=== PATIENT | female | born 1985 | race Caucasian/White ===

== ENCOUNTER → 2018-07-12 15:13 | Outpatient (CLI) | payer MEDICAID, SELFPAY ==
[2018-07-12 17:41] LABS: Chlamydia Trachomatis by PCR Negative (Negative); Neisserai gonorrhoeae by PCR Negative (Negative); Probe Check PASS; Sample Adequacy Control PASS; Specimen Processing Control PASS
[2018-07-17 10:44] LABS: HPV Reflexed? NOT INDICATED
== END ==
PROVIDERS: Visit Provider Obstetrics & Gynecology
DX: Z12.4 Encounter for screening for malignant neoplasm of cervix (principal); Z11.3 Encounter for screening for infections with a predominantly sexual mode of transmission
CPT/HCPCS: 87491; 87591; 88175; G0145

== ENCOUNTER → 2018-07-25 11:44 | Outpatient (CLI) | payer MEDICAID, SELFPAY ==
[2013-08-22 07:40] VITALS: BMI 30.6
[2018-07-25 14:40] LABS: Color, Urine Yellow (Yellow); Glucose, Dipstick Normal (Normal); Ketone-Dipstick Negative (Negative); Leukocyte Esterase-Dipstick 100 /ul (Negative); Nitrite-Dipstick Negative (Negative); Occult Blood-Urine Negative /ul (Negative); Protein-Dipstick Negative (Negative); Urine Bilirubin Dipstick Negative (Negative); Urine Clarity Sl. Cloudy (Clear); Urine Urobilinogen Normal (Normal)
[2018-07-25 14:43] LABS: COTININE Drug Screen Positive (<200 ng/mL)
[2018-07-25 14:56] LABS: Absolute Lymphocyte Count 2.18 X10^3/ul (0.83-4.51); Basophil# 0.01 X10^3/uL; Basophil% 0.1 % (0-1); Eosinophil# 0.11 X10^3/uL; Eosinophils% 1.1 % (0-5); Hemoglobin 12.3 g/dl (12.0-15.0); Lymphocyte # 2.18 X10^3/ul (4.0); Lymphocyte % 22.2 % (19-41); Mean Corp Hgb Conc 33.2 g/gl (32-36); Mean Corpuscular Hgb 29.6 pg (27.0-32.0); Mean Corpuscular Volume 89.2 fL (81-99); Mean Platelet Vol. 11.6 fl (6.2-12.0); Monocyte# 0.47 X10^3/uL; Monocyte% 4.8 % (0-10); Neutrophil # 7.01 X10^3/uL (2.7-7.7); Neutrophil % 71.6 % (47-70); Platelet Count 384 K/mm3 (150-450); RBC Distribution Width CV 12.9 % (11.6-14.6); RBC Distribution Width SD 41.9 fl (35.1-43.9); Red Blood Count 4.15 M/mm3 (4.2-5.4); White Blood Count 9.8 K/mm3 (4.4-11.0)
[2018-07-25 14:59] LABS: Amphetamine Urine VISTA NEGATIVE (<1000 ng/mL); Barbiturate Urine VISTA NEGATIVE (< 200 ng/mL); Benzodiazepine Urine VISTA NEGATIVE (< 200 ng/mL); Cocaine Urine VISTA NEGATIVE (< 300 ng/mL); Ecstacy Urine VISTA NEGATIVE (< 500 ng/mL); Methadone Urine VISTA NEGATIVE (< 300 ng/mL); PCP Urine VISTA NEGATIVE (< 25 ng/mL); POSITIVE COUNT NO; POSITIVE DIFFERENTIAL NO; POSITIVE MORPHOLOGY NO; THC Urine VISTA POSITIVE (< 50 ng/mL); Vista UDS pH Range 8
[2018-07-25 15:16] LABS: Thyroid Stim Hormone (TSH) 1.03 uIU/mL (0.358-3.74)
[2018-07-25 15:53] LABS: HIV - WCH Non-Reactive (Nonreactive); Rubella IgG 136.3 IU/mL
[2018-07-25 20:22] LABS: Prenatal RPR NONREACTIVE (NONREACTIVE)
[2018-07-26 08:29] LABS: HEPATITIS B SURFACE AG Negative (Negative); Hep C Antibodies <0.1 s/co ratio (0.0-0.9)
== END ==
PROVIDERS: Visit Provider Obstetrics & Gynecology
DX: Z34.81 Encounter for supervision of other normal pregnancy, first trimester (principal)
CPT/HCPCS: 36415; 80307; 81002; 84443; 85025; 86703; 86762; 86803; 87340

== ENCOUNTER → 2018-09-19 | Outpatient (CLI) | payer MEDICAID, SELFPAY ==
[2013-08-22 07:40] VITALS: BMI 30.6
[2018-09-21 03:06] LABS: AFP MoM Value 0.77 (.); AFP Value-EIA 23.6 ng/mL (.); Comment Report (.); DIA MoM Value 1.59 (.); DSR (By Age) 420 (.); DSR (Second Trimester) 3841 (.); Gestat. Age Based On As provided (.); Gestational Age 16.6 WEEKS (.); Insulin Dep Diabetes No (.); Maternal Age At EDD 33.3 yr (.); hCG MoM 0.39 (.); hCG Value 12627 mIU/mL (.)
== END | disposition home or self-care (01) ==
LOC: WOBLAB 10:04
PROVIDERS: Visit Provider Obstetrics & Gynecology
DX: Z34.82 Encounter for supervision of other normal pregnancy, second trimester (principal)
CPT/HCPCS: 36415; 82105; 82677; 84702; 86336

== ENCOUNTER → 2018-12-04 | Outpatient (CLI) | payer MEDICAID, SELFPAY ==
[2018-12-04 10:38] LABS: Hematocrit 33.7 % (37-47); Hemoglobin 11.3 g/dL (12.0-15.0); Mean Corp Hgb Conc 33.5 g/dL (32-36); Mean Corpuscular Hgb 30.9 pg (27.0-32.0); Mean Corpuscular Volume 92.1 fL (81-99); Mean Platelet Vol. 10.8 fl (6.2-12.0); Platelet Count 302 K/mm3 (150-450); RBC Distribution Width CV 12.5 % (11.6-14.6); RBC Distribution Width SD 41.2 fl (35.1-43.9); Red Blood Count 3.66 M/mm3 (4.2-5.4); White Blood Count 10.1 K/mm3 (4.4-11.0)
[2018-12-04 10:48] LABS: Glucose Challenge Gest 1H 50g 110 mg/dL (70-140)
== END | disposition home or self-care (01) ==
LOC: WOBLAB 10:08
PROVIDERS: Visit Provider Obstetrics & Gynecology
DX: Z34.83 Encounter for supervision of other normal pregnancy, third trimester (principal)
CPT/HCPCS: 36415; 82950; 85027

== ENCOUNTER → 2019-02-14 15:03 | Outpatient (CLI) | payer MEDICAID, SELFPAY ==
[2013-08-22 07:40] VITALS: BMI 30.6
== END ==
PROVIDERS: Visit Provider Obstetrics & Gynecology
DX: Z36.85 Encounter for antenatal screening for Streptococcus B (principal)
CPT/HCPCS: 87081

== ENCOUNTER 2019-03-06 06:40 | Inpatient (IN) | payer MEDICAID, SELFPAY ==
[2019-03-06 07:35] VITALS: BMI 35.4
[2019-03-06] MEDS: Lactated Ringers 1,000 ML 50 ML IV (07:40)
[2019-03-06 08:00] LABS: Absolute Lymphocyte Count 2.13 X10^3/uL (0.83-4.51); Absolute Neutrophil Count 9.6 X10^3/uL (2.0-7.7); Basophil# 0.03 X10^3/uL; Basophil% 0.2 % (0-1); Eosinophil# 0.12 X10^3/uL; Hematocrit 34.7 % (37-47); Hemoglobin 11.3 g/dL (12.0-15.0); Lymphocyte # 2.13 X10^3/ul (4.0); Mean Corp Hgb Conc 32.6 g/dL (32-36); Mean Corpuscular Hgb 29.5 pg (27.0-32.0); Mean Corpuscular Volume 90.6 fL (81-99); Mean Platelet Vol. 11.8 fl (6.2-12.0); Monocyte# 0.65 X10^3/uL; Monocyte% 5.2 % (0-10); NRBC Flagged by Analyzer 0 % (0-5); Neutrophil # 9.57 X10^3/uL (2.7-7.7); Neutrophil % 76.2 % (47-70); Platelet Count 248 K/mm3 (150-450); RBC Distribution Width CV 13.1 % (11.6-14.6); RBC Distribution Width SD 43.3 fl (35.1-43.9); Red Blood Count 3.83 M/mm3 (4.2-5.4); White Blood Count 12.6 K/mm3 (4.4-11.0)
[2019-03-06] MEDS: Oxytocin 30 units/NS 500 ml 30 UNITS/500 ML IV.SOLN IV (08:38)
[2019-03-06] MEDS: Lactated Ringers 500 ML 999 ML IV (10:59)
[2019-03-06] MEDS: fentaNYL-bupivacaine (epidural) 100 ML BAG EPIDURAL (12:11)
[2019-03-06] MEDS: Lactated Ringers 1,000 ML 200 ML IV (13:57)
[2019-03-06] MEDS: Oxytocin 30 units/NS 500 ml 30 UNITS/500 ML IV.SOLN 334 UNITS IV (14:38)
--- NOTE | 2019-03-06 14:48 | PCM.HP.BLA ---
History and Physical Date of Admission: 03/06/19 [facility] [place]ORY AND PHYSICAL (03/06/2019) Name: JOLYNN SOLER History of This : This is a 33-year-old patient who presents for induction at 40 weeks and 6 days gestation. care uneventful except for a previous shoulder dystocia with her first . She is also a smoker and has been advised to quit. OB Physician: MAYA 's Physician: DR. SUSAN GILBERT ...................................................................... : 1985 Age: 33 Address: [address] [place] [address] Phone: (h) [phone] [facility] [place] [id number] Emergency Contact: EMA SOLER [phone] ...................................................................... Final LAM: 02/28/19 By Ultrasound: 8 weeks 6 days PARITY: (G-Total Pregnancies P-Fullterm,Premature,Induced AB,Spont AB, Ectopics, Multiple,Living) LAM CONFIRMATION: By LMP: 05/24/18 Final LAM: 02/28/19 OB PROBLEM LIST: Epidural planned. Will formula feed baby. Hx of needing induction for post-dates with previous deliveries. Shoulder Dystocia first deliv. (9 lbs) Smoker--advised to quit Wants 39 week induction Wants MSAFP drawn, declines CF testing ALLERGIES: NKDA MEDICATIONS: Diflucan 150 mg tablet one tab PO Vitamin tablet SOCIAL HISTORY: Smoking - Smokes--advised to quit Alcohol Use - denies drinking Diet - balanced Diet Lifestyle - moderate stress lifestyle Exercise - active Employer - unemployed Job Description - Illicit Drug Use - denies use of street drugs Sexual Activity - Residence - owns a home Place of - [place], [place] Spouse-Sig Other Name - Ema Soler Spouse-Sig Other Occupation - Self-employed - giovanni Spouse-Sig Other Phone No - [phone] Children Name(s) - Elias Velarde. Estelita PRIOR DELIVERY HISTORY DEL DATE GEST LAB WT LB WT OZ TYPE ANES LABOR TX 01 Aug 17 41 24 9 0 Vag Epidural No Apr 19 41 12 7 0 Vag Epidural No Aug 25 40 8 7 7 Vag Epidural No ANTEPARTUM FLOW CHART VISIT RTC FU F F AZ U U DATE WK MD WKS HT PN HR M SS BP ED WT AZ GL D EF ST __ ____ ___ __ __ ___ __ __ __ ___ __ __ __ ___ __ 21 Feb 40 JMW 6 38 V + + 130/80 sl 208 tr - 2 50 -2 16 Feb 39 JMW 1 39 V + + 130/88 sl 204 - - 1 50 -2 11 Feb 39 ELB 1 39 V + + 114/72 sl 206 tr - ft 25 hi 04 Feb 38 ELB 1 37 V U+ + 122/80 0 204 tr - 1 -3 Sep 36 JMW 1 37 + + 122/74 sl 203 tr - 18 Sep 35 JMW 1 36 B + + 120/74 tr 202 - - 12 Jan 34 JMW 1 35 + + 110/80 sl 200 - - Dec JMW 2 32 + 120/78 sl 203 - - Jan 10 SHM 2 30 + + 100/70 0 198 - - Dec 07 JMW 3 27 + + 122/70 0 198 - - Nov 03 DS 4 24 ? + + 126/74 0 196 - - September 29 ELB 4 - B U+ + 110/70 0 193 - - September 26 DS 3 16 ? + ? 126/74 0 187 Aug 23 DS 4 ? + O 124/74 0 181 - - Jul 19 DS 4 ? U+ O 138/68 0 178 - - ANTEPARTUM NOTE(S): Mar 03 2019: feeling well. Cervix check. Feb 26 2019: feeling well. Cervix check. Feb 21 2019: uncomfortable Feb 14 2019: GBS today VTX and cancelled C/S Feb 06 2019: Good FM,(L) ankle swelling Jan 29 2019: Wants with tubal Jan 23 2019: feeling well. cramping on left side. Jan 09 2019: feeling well. Dec 25 2018: feeling well. Dec 04 2018: CBC,OGCT Today,URI with Amoxicillin Therapy x 7 days Nov 05 2018: see note Oct 08 2018: feeling well. Sep 19 2018: see note Aug 22 2018: see note Jul 25 2018: see note COMPREHENSIVE ANTEPARTUM NOTE(S): Feb 26 2019: (m,f,m,m*) 39.5 weeks wishes to be induced. SVE /-2 soft anterior. Remains vertex with FHR 160. Denies ROM/bleeding. +FM. Denies any questions or concerns. Will return Sunday for SVE and induction per Dr. Jacob Law CH Feb 18 2019: GBS negative. EB Feb 14 2019: H taken to OB. tkg Feb 06 2019: Signed Tubal Federal Consent Form today and reports feeling well, with slight swelling in (L) ankle area. ROSY Feb 06 2019: Feeling well; reports active FM; denies UCs, VB, LOF; discussed warning signs, s/s PTL; RTO 1 weeks for PNV - KVW Jan 29 2019: Jolynn is here at 35.5 weeks for visit following growth US. She is feeling well. Baby is active. No questions. Clau MCKEON Jan 09 2019: Feeling well; reports active FM; UCs, VB, LOF; discussed warning signs, s/s PTL; RTO 2 week(s)for PNV Dec 25 2018: Good movement, minor muscular discomforts, overall feeling well. Discussed resutls of glucola and bloodwork, comfort measures, s/s PTL, pt verbalized understanding Nov 05 2018: Good FM. Glucola bottle and instructions given to be done next visit. Nov 05 2018: No complsints. Feeling movement. GCT and CBC next visit. Sep 19 2018: Doing well. No complaints. MSAFP screening done today. Test explained. Anatomical US next visit. Aug 22 2018: labs reviewed from last visit and were normal. She was positive on screening for nicotine and THC. Will consider repeating these at a future visit. No bleeding or cramping. Aug 22 2018: Finished ABX yesterday for a tooth problem. Sx yeast and given Diflucan 08/20. Still having Sx. kbm Jul 25 2018: Doing well. No complaints. No bleeding. US c/w dating. Normal heart beat noted today.NOB nurse intake and labs done today. Jul 25 2018: Jolynn is here for her NOB visit at 8 w 6 d, she is a with an LAM of 02/28/2019. She reports that she feels well, and that any nausea she had been experiencing has resolved. She and her have a 4 year old daughter together; Jolynn has a 11 and 13 year old from a previous relationship, and her , Ema, has three children form a previous relationship, ages 8, 9, and 15. Past history updated. Delivery at [facility] is planned with an epidural, and she plans to formula feed baby. Office practice patterns reviewed, including what labs being collected today entail. Emergencies/danger signs to report, round ligament pain, reporting s/s of a UTI, and common OTC medications approved/not approved for use during discussed. Jolynn states that she is still smoking and wants to quit, she is down to a few cigarettes a day; encouraged to quit as planned. She denies use of drugs or ETOH. Jolynn takes an OTC gummy vitamin and tolerates this well. Genetic Screening form completed, no significant history noted. She wants to have MSAFP drawn, and she declines CF testing; consent signed as such. Jolynn drinks at least one gallon of water every 24 hrs, and limits caffeine use to one cup a day. She tries to eat a generally well balanced diet, and will make sure protein is included in her diet throughout the day. She walks several times a week, and plans to continue to do so. Kegel exercises reviewed. Lifting restrictions discussed. Reviewed caloric needs, recommended weight agin, limiting empty calories, and continuing to limit caffeine to one cup a day. Printed guide for food safety during provided with review. Jolynn voices that she understands all information provided during NOB visit, and she has no questions following same. To [facility] draw station for labs. AW New Jul 13 2018: GC and chlamydia NEG. EB Jul 12 2019: Jolynn is being seen for missed menses. UPT is positive in office. LMP 1-11-19. Pt is about 7 weeks. LAM 19. Medications and allergies are up to date. information reviewed. Pap and cultures due today. AM REVIEW OF SYSTEMS: GENERAL - Denies fever, or chills SKIN - Denies rash, new skin lesions, or change in moles EYES - Denies blurred vision, or change in visual acuity EARS - Denies ear pain, or difficulty hearing NOSE - Denies nasal congestion, discharge, or bleeding MOUTH - Denies sore throat, or difficulty swallowing NECK - Denies pain or swelling RESPIRATORY - Denies shortness of breath, cough, wheezing CARDIOVASCULAR - Denies palpitations, chest pain, orthopnea, PND, peripheral edema, syncope or claudication GASTROINTESTINAL - Denies nausea, vomiting, diarrhea, constipation, Denies abdominal pain, melena and or bright red blood GENITOURINARY - Denies dysuria, frequency of urination, urgency, or hesitancy MUSCULOSKELETAL - Denies joint or muscle pain, or back pain NEUROLOGICAL - Denies localized numbness, weakness, or tingling PSYCHIATRIC - Denies depression, anxiety, substance abuse or suicide attempts ENDOCRINE - Denies heat or cold intolerance, weight loss or gain, increasing thirst HEMATO-IMMUNOLOGIC - Denies easy bruising, bleeding, oral ulcerations or recurrent infections GENETICS SCREENING: Age 35+ years: No Thalassemia: No Neural Tube Defect: No Down Syndrome: No SARANYA-SACHS: No Sickle Cell Disease: No Hemophilia: No Musc. Dystrophy: No Cystic Fibrosis: No-declines screening Devon Chorea: No Mental Retardation: No Fragile X: No Other genetic: No Other defects: No SABs/still births: No Drugs since LMP: No INFECTION HISTORY: High risk AIDS: No High risk Hepatitis: No Exposed to TB: No Exposed to Herpes: No Rash/viral illness since LMP: No History of STD: No MENSTRUAL HISTORY: *Menses Amount/Duration: 4 to 5 daysMenses Regularity: IrregularFrequency: variable* PAST SUMMARY: PARITY: 1. Total Pregnancies............ 4 2. Full Term Pregnancies........ 3 3. Premature.................... 0 4. Abortions - Induced.......... 0 5. Abortions - Spontaneous...... 0 6. Ectopics..................... 0 7. Multiple Births.............. 0 8. Living Children.............. 3 PAST #1: Date of :.................. 08/12/05 Gestation Weeks:................ 41 Length of labor(hours):......... 24 Sex:............................ M Weight-lbs:............... 9 Weight-oz:................ 0 Type of Delivery:............... Vag Type of Anesthesia:............. Epidural Place of Delivery:.............. [place] Treatment of Labor?:.... No Comment: MANUAL OF PLACENTA, INDUC PAST #2: Date of :.................. 04/16/07 Gestation Weeks:................ 41 Length of labor(hours):......... 12 Sex:............................ F Weight-lbs:............... 7 Weight-oz:................ 0 Type of Delivery:............... Vag Type of Anesthesia:............. Epidural Place of Delivery:.............. wadw Treatment of Labor?:.... No Comment: PAST #3: Date of :.................. 08/22/13 Gestation Weeks:................ 40 Length of labor(hours):......... 8 Sex:............................ F Weight-lbs:............... 7 Weight-oz:................ 7 Type of Delivery:............... Vag Type of Anesthesia:............. Epidural Place of Delivery:.............. [place] Treatment of Labor?:.... No Comment: PHYSICAL EXAMINATION General Appearence: 33 yo female in no acute distress Vital Signs: AF, VSS Heart: RRR without rubs or gallops Lungs: CTA x 2 Breasts: deferred Abdomen: gravid Pelvis: Cervix: 3 cm/60 AROM scant Presentation: cephalic Station: -2 Fetus: Size: AGA Movement: present Heart: present Labs for : JOLYNN SOLER since 06/03/2018 ORDER DATEIN DESCRIPTION VALUE UNITS RANGE A+ COMMENT TYPE AND SCREEN 03/06/19 Reason for Type AND Screen/Red Cells: Labor [facility]~[address] [place], [address]~ BLOOD TYPE GEL A POSITIVE N ANTIBODY SCREEN NEGATIVE N CBC W/DIFF, AUTOMATED 03/06/19 NOTE Original Ordering Provider: Sarai Julian WBC 12.6 K/mm3 4.4-11.0 H RBC 3.83 M/mm3 4.2-5.4 L HGB 11.3 g/dL 12.0-15.0 L HCT 34.7 % 37-47 L MCV 90.6 fL 81-99 MCH 29.5 pg 27.0-32.0 MCHC 32.6 g/dL 32-36 RDW CV 13.1 % 11.6-14.6 RDW SD 43.3 fl 35.1-43.9 PLT 248 K/mm3 150-450 MPV 11.8 fl 6.2-12.0 NEUT% 76.2 % 47-70 H LY% 17.0 % 19-41 L MONO% 5.2 % 0-10 EO% 1.0 % 0-5 BASO% 0.2 % 0-1 IM GRAN % 0.400 % 0.0-0.9 IG% - Immature Granulocytes (promyelocytes, myelocytes and metamyelocytes) > 1% indicates that a LEFT SHIFT is Present. ABSOLUTE NEUT 9.6 X10 3/uL 2.0-7.7 H ABSOLUTE LYMPH 2.13 X10 3/uL 0.83-4.51 NRBC, FLAGGED 0 % 0-5 CULTURE, GROUP B STREPTOCOCCUS 02/14/19 NOTE Original Ordering Provider: Sarai Julian Comments: VAGINAL/RECTAL GONZALO Culture Group B Beta Streptococcus is not isolated. Reviewed by SARAI GLUCOSE CHALLENGE GEST 1H 50G 12/04/18 NOTE Original Ordering Provider: Rodríguez Freeman GLU GEST 50G 1H 110 mg/dL 70-140 Reviewed by RODRÍGUEZ CBC-COMPLETE BLOOD CNT NO DIFF 12/04/18 NOTE Original Ordering Provider: Rodríguez Freeman WBC 10.1 K/mm3 4.4-11.0 RBC 3.66 M/mm3 4.2-5.4 L HGB 11.3 g/dL 12.0-15.0 L HCT 33.7 % 37-47 L MCV 92.1 fL 81-99 MCH 30.9 pg 27.0-32.0 MCHC 33.5 g/dL 32-36 RDW CV 12.5 % 11.6-14.6 RDW SD 41.2 fl 35.1-43.9 PLT 302 K/mm3 150-450 MPV 10.8 fl 6.2-12.0 Reviewed by RODRÍGUEZ ROSAS TETRA QUAD SCREEN 09/19/18 NOTE Original Ordering Provider: Carla Gar TEST RESULTS: *Screen Negative* . GESTATIONAL AGE 16.6 WEEKS . GEST AGE [age] As provided . [age]STIN [age]AM [age] . RACE . WEIGHT 187 lbs . INS DEP DIABETE No . MULT GESTATION No . AFP VALUE-EIA 23.6 ng/mL . AFP MOM VALUE 0.77 . HCG VALUE 11533 mIU/mL . HCG MOM 0.39 . UE3 VALUE 0.77 ng/mL . UE3 MOM 0.87 . SNEHA VALUE-EIA 239.89 pg/mL . SNEHA MOM VALUE 1.59 . OSBR RISK 24086 . DSR 2ND TRIMEST 3841 . DSR (BY AGE) 420 . T18 RISK Not increased . T18 (BY AGE) 1:1637 . INTERPRETATION . Interpretation: Screen Negative This result is screen negative for OSB, Down Syndrome and Trisomy 18. The AFP MoM and patient specific risks calculated are based on the gestational age and the clinical information provided. This test can identify up to 80% of open neural tube defects. Closed neural tube defects and some open defects may not be detected by this test. The combination of maternal age, AFP, hCG, uE3, and SNEHA identifies 75-80% of Down Syndrome. The combination of maternal age, AFP, hCG and uE3 identifies 60% of Trisomy 18 pregnancies. The [employer] recommends amniocentesis be offered to women age 35 and older. Recalculations are not recommended when gestational dating by LMP and ultrasound are within 10 days. Reviewed by CARLA HEPATITIS C ANTIBODIES 07/25/18 NOTE Original Ordering Provider: Carla Gar HEP C AB <0.1 s/co ratio 0.0-0.9 Negative: < 0.8 Indeterminate: 0.8 - 0.9 Positive: > 0.9 The CDC recommends that a positive HCV antibody result be followed up with a HCV Nucleic Acid Amplification test (264260). Reviewed by CARLA HEPATITIS B SURFACE AG 07/25/18 NOTE Original Ordering Provider: Carla Gar HB SURF AG Negative Negative Performed at: [address] [id number] Steam Fitter Helper: Luis Fernando Bond PhD, Phone: [phone] Reviewed by CARLA RPR 07/25/18 NOTE Original Ordering Provider: Carla Gar RPR NONREACTIVE NONREACTIVE Reviewed by CARLA HIV - [facility] 07/25/18 NOTE Original Ordering Provider: Carla Gar HIV - [facility] Non-Reactive Nonreactive Reviewed by CARLA RUBELLA IGG 07/25/18 NOTE Original Ordering Provider: Carla Gar RUBELLA IGG 136.3 IU/mL Antibody results Interpretation of Immune Status < 5 IU/ml Presumed Non-immune 5 - < 10 IU/ml Equivocal > or = 10 IU/ml Presumed Immune Reviewed by CARLA T AND S-NO CHARGE W/PNP 07/25/18 Reason for Type AND Screen/Red Cells: Surgery? N [facility]~[address] [place], [address]~ BLOOD TYPE GEL A POSITIVE N AB SCREEN GEL NEGATIVE N Reviewed by CARLA THYROID STIM HORMONE (TSH) 07/25/18 NOTE Original Ordering Provider: Carla Gar TSH 1.03 uIU/mL 0.358-3.74 Reviewed by CARLA CBC W/DIFF, AUTOMATED 07/25/18 NOTE Original Ordering Provider: Carla Gar WBC 9.8 K/mm3 4.4-11.0 RBC 4.15 M/mm3 4.2-5.4 L HGB 12.3 g/dl 12.0-15.0 HCT 37.0 % 37-47 MCV 89.2 fL 81-99 MCH 29.6 pg 27.0-32.0 MCHC 33.2 g/gl 32-36 RDW CV 12.9 % 11.6-14.6 RDW SD 41.9 fl 35.1-43.9 PLT 384 K/mm3 150-450 MPV 11.6 fl 6.2-12.0 NEUT% 71.6 % 47-70 H LY% 22.2 % 19-41 MONO% 4.8 % 0-10 EO% 1.1 % 0-5 BASO% 0.1 % 0-1 IM GRAN % 0.200 % 0.0-0.9 IG% - Immature Granulocytes (promyelocytes, myelocytes and metamyelocytes) > 1% indicates that a LEFT SHIFT is Present. ABSOLUTE NEUT 7.0 X10 3/uL 2.0-7.7 ABSOLUTE LYMPH 2.18 X10 3/ul 0.83-4.51 Reviewed by CARLA NICOTINE URINE DRUG SCREEN 07/25/18 NOTE Original Ordering Provider: Carla Gar TO BE CONFIRMED CONFIRMATORY TESTING FOR ALL POSITIVE URINE DRUG SCREEN RESULTS WILL ONLY BE SENT OUT UPON PHYSICIAN ORDER. The results of Urine Drug Screen methods provide only preliminary analytical test results. A more specific alternate chemical method must be used in order to obtain a confirmed analytical result. Gas chromatography/mass spectrometery (GC/MS) is the preferred confirmatory method. Clinical consideration and professional judgement should be applied to any drug of abuse test result, particularly when preliminary positive results are used. COT DRG SCREEN Positive <200 ng/mL H Cotinine is the first-stage metabolite of Nicotine. Reviewed by CARLA URINE DRUG SCREEN (VISTA) 07/25/18 NOTE Original Ordering Provider: Carla Gar TO BE CONFIRMED CONFIRMATORY TESTING FOR ALL POSITIVE URINE DRUG SCREEN RESULTS WILL ONLY BE SENT OUT UPON PHYSICIAN ORDER. VISTA Urine Drug Screen methods provide only preliminary analytical test results. A more specific alternate chemical method must be used in order to obtain a confirmed analytical result. Gas chromatography/mass spectrometery (GC/MS) is the preferred confirmatory method. Clinical consideration and professional judgement should be applied to any drug of abuse test result, particularly when preliminary positive results are used. URINE TCA TESTING MUST BE ORDERED SEPARATELY. USE TEST MNEMONIC: [place] UDS PH 8 AMPHETAMINES NEGATIVE <1000 ng/mL BARBITIURATES NEGATIVE < 200 ng/mL BENZODIAZIPINE NEGATIVE < 200 ng/mL COCAINE NEGATIVE < 300 ng/mL ECSTACY NEGATIVE < 500 ng/mL METHADONE NEGATIVE < 300 ng/mL OPIATES NEGATIVE < 300 ng/mL PCP NEGATIVE < 25 ng/mL THC POSITIVE < 50 ng/mL H Reviewed by CARLA Reviewed by CARLA Reviewed by CARLA URINALYSIS, ROUTINE (DIPSTICK) 07/25/18 NOTE Original Ordering Provider: Carla Gar COLOR Yellow Yellow CLARITY Sl. Cloudy Clear GLUCOSE, UR Normal mg/dl Normal BILIRUBIN URINE Negative mg/dL Negative KETONE UR Negative mg/dl Negative SP.GR. DIPSTX 1.020 1.002-1.030 PH UR 8.0 5.0 - 8.0 PROT DIPSTX Negative mg/dl Negative UROBILI Normal mg/dl Normal NITRITE UR Negative Negative OCCULT BLOOD-UR Negative /ul Negative LEUK ESTERASE 100 /ul Negative H Reviewed by CARLA Reviewed by CARLA Reviewed by CARLA PAP I-G W/RFX HRHPV 07/12/18 NOTE Original Ordering Provider: Carla Gar DIAGN . NEGATIVE FOR INTRAEPITHELIAL LESION OR MALIGNANCY. ADEQ . Satisfactory for evaluation. Endocervical and/or squamous metaplastic cells (endocervical component) are present. PERFORM . Christine Nesbitt, Radio Maintainer (ASCP) TEST METHOD . This liquid based ThinPrep(R) pap test was screened with the use of an image guided system. COMM . . PAPSMR . The Pap smear is a screening test designed to aid in the detection of premalignant and malignant conditions of the uterine cervix. It is not a diagnostic procedure and should not be used as the sole means of detecting cervical cancer. Both false-positive and false-negative reports do occur. HPV RFLX . The HPV DNA reflex criteria were not met with this specimen result therefore, no HPV testing was performed. Performed at: [facility] [id number] Steam Fitter Helper: Faiza Chandler MD, Phone: [phone] Reviewed by CARLA DAMICO/ACOSTA [facility] BY PCR 07/12/18 NOTE Original Ordering Provider: Carla Gar [facility] PCR Negative Negative NG BY PCR Negative Negative Reviewed by SARAI Impression /Plan: 40 w 6 days intrauterine for induction with Pitocin and rupture of membranes. Preparations in progress for delivery.
--- NOTE | 2019-03-06 14:54 | DCINST_ITS ---
Discharge Diet: No Restrictions Discharge Activity: May Shower, May Take a Tub Bath May resume sexual activity in: 4-6 weeks Additional Activity Instructions:: Nothing in the vagina for 4-6 weeks. You may return to work/school in 6 weeks. Call your doctor if you observe: Fever of 101 or Higher, Inability to urinate, Inability to have a bowel movement, Using more than one pad per hour Additional Instructions: If you experience any of the following, contact your healthcare provider. * Bleeding that soaks a pad every hour for 2 hours * Fever 100.4 or higher * Unrelieved incision or abdominal pain * Swelling, redness, discharge or bleeding from your incision or episiotomy site * Your incision begins to separate * Problems urinating (including inability to urinate or burning while urinating). * Visual changes * Severe headache * Flu-like symptoms * Pain or redness in one of both of your breasts * Pain, warmth, tenderness or swelling in your legs, especially the calf area * Frequent nausea and vomiting * Symptoms of depression or anxiety If you experience any of the following, call 911 or go to the nearest Emergency Room. * Chest pain * Problems breathing * Seizure activity * Partial or complete paralysis of a body part, slurred speech, weakness or drooping of the face, or a sudden inability to walk or hold your balance Allergies/Adverse Reactions: Allergies No Known Allergies Allergy (Verified 03/06/19 07:36) Medications to take at Discharge Vits [Prenatabs FA ] 1 tab PO DAILY 03/06/19 Please Follow Up With: Cameron Freeman MD - [phone] When: Call to make an appointment with your doctor in 6 weeks. Primary Care Physician: Care Physician,No Primary [Primary Care Provider] - Test Results: Test results from this visit will be discussed in further detail at your follow- up appointment, if applicable.
--- NOTE | 2019-03-06 14:54 | PCM.DCVAG ---
Discharge Diet: No Restrictions Discharge Activity: May Shower, May Take a Tub Bath May resume sexual activity in: 4-6 weeks Additional Activity Instructions:: Nothing in the vagina for 4-6 weeks. You may return to work/school in 6 weeks. Call your doctor if you observe: Fever of 101 or Higher, Inability to urinate, Inability to have a bowel movement, Using more than one pad per hour Additional Instructions: If you experience any of the following, contact your healthcare provider. Bleeding that soaks a pad every hour for 2 hours Fever 100.4 or higher Unrelieved incision or abdominal pain Swelling, redness, discharge or bleeding from your incision or episiotomy site Your incision begins to separate Problems urinating (including inability to urinate or burning while urinating). Visual changes Severe headache Flu-like symptoms Pain or redness in one of both of your breasts Pain, warmth, tenderness or swelling in your legs, especially the calf area Frequent nausea and vomiting Symptoms of depression or anxiety If you experience any of the following, call 911 or go to the nearest Emergency Room. Chest pain Problems breathing Seizure activity Partial or complete paralysis of a body part, slurred speech, weakness or drooping of the face, or a sudden inability to walk or hold your balance Allergies/Adverse Reactions: Allergies No Known Allergies Allergy (Verified 03/06/19 07:36) Medications to take at Discharge Vits [Prenatabs FA ] 1 tab PO DAILY 03/06/19 Please Follow Up With: Cameron Freeman MD - [phone] When: Call to make an appointment with your doctor in 6 weeks. Primary Care Physician: Care Physician,No Primary [Primary Care Provider] - Test Results: Test results from this visit will be discussed in further detail at your follow-up appointment, if applicable.
--- NOTE | 2019-03-06 14:55 | PCM.OPRPT ---
Vaginal Delivery Maternal Presentation: Elective Induction Method of Induction: Pitocin, Amniotomy Amniotic Membrane Rupture Type: Artificial Amniotic Fluid Description: Lightly stained meconium Final LAM: 02/28/19 Final LAM Source: US <20 weeks Gestational age: 40 Weeks and 6 Days doctor who attended delivery (if requested by OB): Tory Everett Date of Procedure: 03/06/19 Pre-Operative Diagnosis: IUP Post-Operative Diagnosis: IUP Surgery/ Procedure Performed: Spontaneous Vaginal Delivery Type of Anesthesia: Epidural Description of Procedure: Spontaneous vaginal delivery of a viable male with Apgars of 8/9 from an occiput anterior presentation with lightly stained meconium fluid and three-vessel placenta. Placenta was meconium-stained. Cord was around the neck and under the arm tight. No episiotomy or lacerations. Sponges okay. Delivery physician: Cameron Freeman MD. Presentation: Vertex Placental Delivery Description: Spontaneous Placenta Disposition: [facility] Cord Vessel Description: 3 Vessels Cord Gases drawn per routine: ABG Cord Entanglement: Around neck x 1, tight, - - Under arm Estimated Blood Loss: 250 cc Infant A gender: Male (1 minute): 8 (5 minute): 9 Episiotomy Description: None Laceration: None Medications given after delivery: IV Pitocin Complications: None
[2019-03-06 17:29] LABS: Amphetamine Urine VISTA NEGATIVE (<1000 ng/mL); Barbiturate Urine VISTA NEGATIVE (< 200 ng/mL); Benzodiazepine Urine VISTA NEGATIVE (< 200 ng/mL); Cocaine Urine VISTA NEGATIVE (< 300 ng/mL); Ecstacy Urine VISTA NEGATIVE (< 500 ng/mL); Methadone Urine VISTA NEGATIVE (< 300 ng/mL); PCP Urine VISTA NEGATIVE (< 25 ng/mL); THC Urine VISTA NEGATIVE (< 50 ng/mL); Vista UDS pH Range 7
[2019-03-06 19:37] VITALS: BP 116/67; PULSE 89; RESP 16; TEMP 36.6; O2SAT 99
[2019-03-06] MEDS: Ibuprofen 600 MG Tablet PO (19:39)
[2019-03-07 00:08] VITALS: BP 97/57; PULSE 81; RESP 18; TEMP 36.4; O2SAT 99
[2019-03-07 03:50] VITALS: BP 118/70; PULSE 86; RESP 16; TEMP 36.4; O2SAT 98
[2019-03-07] MEDS: Acetaminophen 500 MG Tablet 1000 MG PO (03:52)
[2019-03-07 08:37] VITALS: BP 110/74; PULSE 82; RESP 16; TEMP 36.6
--- NOTE | 2019-03-07 08:37 | PCM.PN.OB ---
Subjective: Pain (uterine cramping) moderately controlled with Ibuprofen, tolerating diet, passing flatus; bottle feeding well Objective: AVSS Breasts soft Fundus firm, midline,u/1, lochia small - Physical Exam Vitals/I&O's: Vital Signs Temp Pulse Resp BP Pulse Ox 97.5 F L 86 16 118/70 98 03/07/19 03:50 03/07/19 03:50 03/07/19 03:50 03/07/19 03:50 03/07/19 03:50 Oxygen Delivery Method Room Air Weight: 206 lb 3.2 oz Body Mass Index (BMI) 35.4 Intake and Output for Last 24 Hours 03/05/19 03/06/19 03/07/19 23:59 23:59 23:59 Intake Total 2500.00 / 2500.00 Output Total 1950 / 1950 Balance 550.00 / 550.00 General: Alert, Oriented x3, Cooperative, No apparent distress HEENT: PERRLA, EOMI Oral: Moist Mucosa Neck: Supple Lungs: Clear to auscultation, Normal air movement Cardiovascular: Regular rate, Regular Rhythm Abdomen: Bowel Sounds Present, Soft, Non Tender, Non-Distended, Passing Flatus Extremities: Capillary Refill Less than 3 Seconds, No Calf Tenderness Skin: No rashes Musculoskeletal: No Tenderness to Palpation of Joints or Extremities Neurological: Cranial nerves II-XII grossly intact, Deep Tendon Reflexes 2+/4 and Symmetrical Psych/Mental Status: Normal Affect, Appropriate, Alert and oriented to time, place, person, mood and affect Laboratory Results 03/06/19 07:40: Blood Type A POSITIVE, Antibody Screen NEGATIVE 03/06/19 08:35: Urine Opiates Screen NEGATIVE, Urine Methadone Screen NEGATIVE, Ur Barbiturates Screen NEGATIVE, Ur Phencyclidine Scrn NEGATIVE, Ur Amphetamines Screen NEGATIVE, U Methamphetamin-MDMA NEGATIVE, U Benzodiazepines Scrn NEGATIVE, Urine Cocaine Screen NEGATIVE, U Cannabinoids Screen NEGATIVE, Ur Drug Screen Comment Current Medications Acetaminophen (Tylenol) 1,000 mg PO Q8H PRN PRN PRN Reason: Pain Score 1-3/10 Last Admin: 03/07/19 03:52 Dose: 1,000 mg Documented by: Bisacodyl (Dulcolax) 10 mg RECTAL UD PRN PRN Reason: If no BM Dibucaine (Dibucaine) 1 applic TOPICAL TID PRN PRN; Protocol PRN Reason: Discomfort Hydrocortisone (Hytone) 1 applic TOPICAL TID PRN PRN; Protocol PRN Reason: Discomfort Ibuprofen (Motrin) 600 mg PO Q6H PRN PRN PRN Reason: Pain Score 1-3/10 Last Admin: 03/06/19 19:39 Dose: 600 mg Documented by: Methylergonovine Maleate (Methergine) 0.2 mg IM X1 PRN PRN Reason: Excess bleeding/uterine atony Ondansetron HCl (Zofran) 4 mg IV Q4H PRN PRN PRN Reason: Nausea Oxycodone HCl (Oxyir) 5 - 10 mg PO Q4H PRN PRN PRN Reason: Pain Score 4-10/10 Multivit/Folic Acid/Iron (Prenatabs Fa) 1 tablet PO DAILY@1200 ALY Senna/Docusate Sodium (Senokot-S, Fannie-Colace) 1 - 2 tablet PO DAILY PRN PRN PRN Reason: Constipation Simethicone (Mylicon) 80 mg PO PCHS PRN PRN Reason: Indigestion/Stomach pain Medical Necessity - Tobacco Use Smoking Status: Heavy Smoker (>10/day) Assessment/Plan Assessment: 33YO G4 now P4004 p/IOL at 40w6d by L=8w6dUS PP day #1, normal involution, normal course Plan: Discharge teaching completed September discharge home at 24 hours per pts decision RTO 6 weeks for visit
[2019-03-07 12:00] VITALS: BP 122/78; PULSE 90; RESP 16; TEMP 36.5
[2019-03-07] MEDS: Prenatal Vits Tablet 1 TABLET PO (12:30)
--- NOTE | 2019-03-07 14:00 | CASEMGMT ---
Social Work Assessment Labor and Delivery Unit Date of Referral: 03-07-2019 Time of Referral: 713 Referred By: Dr. Freeman Date of Intervention: 03-07-2019 Time of Intervention: 1400 Reason for Referral: maternal history of marijuana use History obtained from: medical records and mother of baby (MOB) [place] Soler Household composition: MOB, father of baby (FOB) Pavel Soler, and MOB's 3 older children. MOB reports home situation is safe and adequate. Patient's parent/guardian status: DAVID is 33 years old to FOB Pavel Soler. MOB and FOB have been together for 6 years. MOB denies any form of abuse, control, or intimidation in this relationship. [place] baby is the 2nd for the parents together with MOB having 2 older children and FOB 3 older children from prior relationships. MOB's minor children include: Elias (born 02/2007), Syd (born 08/2005), Estelita Soler (born 08.22.2013), and Pavel Soler Jr (born 03.06.2019). FOB has children ages 15, 10, and 9; not in the home. Medical History: DAVID is G4, P3 to 4 after delivering Pavel Canas. care good, starting at 8 weeks gestation. MOB delivered baby Pavel Canas at 40 weeks gestation, weighing 8 pounds 7 ounces, Apgars 8 and 9 at 1 and 5 minutes of life. Baby had meconium present at time of delivery. Educational Status: MOB reports to be able to read, write, and to understand what is read. Financial Status: DAVID does not work outside of the home. 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 Infant Supplies: MOB reports to have all needed supplies including a car seat, bassinet, pack-n-play, clothing, diapers, wipe, bottles, and formula. Childcare/Caregiver(s): MOB Transportation: No reported issues or concerns. Programs/Agencies Involved: DAVID has food and medical through [facility] in [facility]. Active with [employer]. Denies any other agency involvement. Children Services/Legal Issues: Denies past or present involvement with children services. No legal issues. Behavioral Health Issues: Mental Health History: MOB denies any formal diagnosis of depression or anxiety. reports may have felt low or some anxiety situationally. No history of suicidal ideation or attempts, no history of counseling or medications. Substance Use History: Denies history of alcohol use in and does not really drink outside of . Denies any history of prescription drug abuse, heroin, cocaine, or methamphetamine use. MOB reports has used marijuana in the past, more of something that did with friends, or for example when the kids were at school and a neighbor would bring this over to use. MOB reports since moving to new housing situation a over a year ago this type of encounter has lessened, as those acquaintances are not around. MOB reports marijuana use was at beginning of , once again with a friend. MOB reports quit after finding out of . MOB denies intent to pick this back up in the future. MOB does smoke tobacco, which is done outside of the home. Family History: DAVID has a brother with history of heroin addiction. Drug Screens: maternal drugs screen positive on 07.25.2018. No rescreening until admission on 03.06.2019, which was negative. Baby's urine is negative. Meconium is pending a meconium sample. Per conversation with nursing and medical technologist generalist, the baby had large amounts of meconium at so uncertain if an when sample is obtained whether this will be sufficient for testing. Family/Social Stressors: LIANNA is a long distance truck driver flatbed and gone during the week. MOB reports was to deliver last week and LIANNA took off of work, but then baby flipped and MOB could not be induced early or have a . Due to later delivery, this has impacted LIANNA being able to take time off of work. MOB reports however that other children are in school, so most the day MOB will have just the baby to care for. The 13 year old boy does do home schooling but MOB reports that her older son is pretty self sufficient with and will need little from MOB during the day. Support Systems: MOB reports LIANNA is a support when he is home and then has a neighbor Akanksha who is a good support. The older children are being watched by family while MOB is in the hospital. ASSESSMENT: Met with MOB in room and educated to social work role. MOB pleasant, cooperative and engaging with administrator social welfare in a non-defensive manner. MOB with bright affect, held good eye contact, and was attentive to baby during social work visit. MOB reports to have needed baby supplies, denies safety concerns with home situation, and reported perception that level of support in the community is adequate. Educated MOB to depression and anxiety, risk factors, and importance of seeking out help and support. MOB voices understanding and agreement. MOB educated to possible children services involvement due to marijuana use in . MOB reports understanding, denies questions bout such and expressed that it would be okay if children services needs to come and meet MOB. Safe Plan of Care for infant related to substance use: MOB is intending to abstain from marijuana. MOB is formula feeding baby, no concerns about exposure through breast milk at this time. MOB endorsed that in the past used marijuana when children were in school, not at home. PLAN: MOB and baby to home. [facility] resources lists given including information on Help Me Grow, Shaken baby prevention, and safe sleeping. depression packet also given that includes resources for such. Plan to call [facility], though do not anticipate a case to be opened due to negative toxicology screens at time of delivery. No other services requested or indicated. -MARGA Estrella, SURVEYING CREW RODMAN
[2019-03-07 15:20] VITALS: BP 116/72; PULSE 91; RESP 18; TEMP 36.8
[2019-03-07] MEDS: Ibuprofen 600 MG Tablet PO ×2 (15:59→22:46)
[2019-03-07 20:00] VITALS: BP 125/78; PULSE 82; RESP 16; TEMP 36.4
[2019-03-07] MEDS: Senna/Docusate Sodium 1 Tablet PO (20:04)
[2019-03-08 02:30] VITALS: BP 104/62; PULSE 74; RESP 16; TEMP 37
[2019-03-08] MEDS: Ibuprofen 600 MG Tablet PO (07:33)
[2019-03-08 07:34] VITALS: BP 113/72; PULSE 78; RESP 16; TEMP 36.7; O2SAT 98
--- NOTE | 2019-03-08 09:19 | PCM.PN.OB ---
Subjective: Subjective: Pain (uterine cramping) moderately controlled with Ibuprofen and Kpad, tolerating diet, passing flatus; bottle feeding well; had originally wanted to be discharged at 24 hours, but decided to stay another night; ready to be discharged home today Objective: Objective: AVSS Breasts filling Fundus firm, midline,u/1, lochia small - Physical Exam Vitals/I&O's: Vital Signs Temp Pulse Resp BP Pulse Ox 98.0 F 78 16 113/72 98 03/08/19 07:34 03/08/19 07:34 03/08/19 07:34 03/08/19 07:34 03/08/19 07:34 Oxygen Delivery Method Room Air Weight: 206 lb 3.2 oz Body Mass Index (BMI) 35.4 Intake and Output for Last 24 Hours 03/06/19 03/07/19 03/08/19 23:59 23:59 23:59 Intake Total 2500.00 / 2500.00 Output Total 1950 / 1950 Balance 550.00 / 550.00 General: Alert, Oriented x3, Cooperative, No apparent distress HEENT: PERRLA, EOMI Oral: Moist Mucosa Neck: Supple Lungs: Clear to auscultation, Normal air movement Cardiovascular: Regular rate, Regular Rhythm Abdomen: Bowel Sounds Present, Soft, Non Tender, Non-Distended, Passing Flatus Extremities: No Calf Tenderness Musculoskeletal: No Tenderness to Palpation of Joints or Extremities Neurological: Cranial nerves II-XII grossly intact, Deep Tendon Reflexes 2+/4 and Symmetrical Psych/Mental Status: Normal Affect, Appropriate, Alert and oriented to time, place, person, mood and affect Current Medications Acetaminophen (Tylenol) 1,000 mg PO Q8H PRN PRN PRN Reason: Pain Score 1-310 Last Admin: 03/07/19 03:52 Dose: 1,000 mg Documented by: Bisacodyl (Dulcolax) 10 mg RECTAL UD PRN PRN Reason: If no BM Dibucaine (Dibucaine) 1 applic TOPICAL TID PRN PRN; Protocol PRN Reason: Discomfort Hydrocortisone (Hytone) 1 applic TOPICAL TID PRN PRN; Protocol PRN Reason: Discomfort Ibuprofen (Motrin) 600 mg PO Q6H PRN PRN PRN Reason: Pain Score 1-310 Last Admin: 03/08/19 07:33 Dose: 600 mg Documented by: Multivit/Folic Acid/Iron (Prenatabs Fa) 1 tablet PO DAILY@1200 ALY Last Admin: 03/07/19 12:30 Dose: 1 tablet Documented by: Medical Necessity - Tobacco Use Smoking Status: Heavy Smoker (>10/day) Assessment/Plan Assessment: 33YO G4 now P4004 p/IOL at 40w6d by L=8w6dUS PP day #2, normal involution, normal course Plan: Discharge teaching completed Discharge home today RTO 6 weeks for visit
--- NOTE | 2019-03-10 12:00 | CASEMGMT ---
Social Work Labor and Delivery Call to [facility] at [phone]. Spoke with Raghavendra Mendoza regarding baby's substance exposure in utero to marijuana. Reported early positive drug screen but subsequent testing at delivery negative in mom and baby both. Brief maternal and infant histories provided. From conversation with Raghavendra, based on information provided not anticipating this referral to be screened in for investigation. No other service requested or indicated. Should meconium drug screen show any substances of abuse then will call children service back as indicated. -SETH Estrella, ART THERAPY SPECIALIST
== END 2019-03-08 10:25 | disposition home or self-care (01) | DRG 560 ==
PROVIDERS: Obstetrics & Gynecology; Admitting Provider Obstetrics & Gynecology; Referring Provider Obstetrics & Gynecology; Visit Provider Obstetrics & Gynecology
DX: O77.0 Labor and delivery complicated by meconium in amniotic fluid (principal); O99.334 Smoking (tobacco) complicating childbirth; Z37.0 Single live birth; Z3A.40 40 weeks gestation of pregnancy; F17.200 Nicotine dependence, unspecified, uncomplicated; O69.1XX0 Labor and delivery complicated by cord around neck, with compression, not applicable or unspecified
CPT/HCPCS: 59025; 59050; 80307; 85025; 86850; 86900; 86901; 99218; J7120; G0378